=== PATIENT | male | born 1960 | race Two or more races ===

== ENCOUNTER → 2022-08-31 | Outpatient (CLI) | payer MEDICAID | END | disposition home or self-care (01) | LOC: Rad HDHVI 14:04 | PROVIDERS: ATTEND Internal Medicine | DX: R07.89 Other chest pain (principal); R06.02 Shortness of breath | CPT/HCPCS: 93306 ==

== ENCOUNTER 2025-04-11 17:12 | Emergency (ER) | payer OTHER, MEDICAID ==
[~2025-04-11] VITALS: Ht 180.3 cm; Wt 61.4 kg
--- NOTE | 2025-04-11 17:34 | ED.PDOC ---
Eye-HPI HPI Comments This is a 64 year old male presenting to the ED with chief complaint of throat pain and swelling. Patient reports that he has been experiencing gradually worsening throat pain and swelling for the past 5 months. Patient relays that he visited his PCP regarding this issue today and he was advised to come to the ED for further evaluation through CT scan. Patient notes that he is having associated difficulty in swallowing and change in voice quality. Patient denies any N/V, SOB, chest pain, fever, or chills. Chief Complaint: Sore Throat Time Seen by MD: 17:31 Reviewed Notes: Nurses Notes, Medications, Allergies Allergies: Coded Allergies: NO KNOWN ALLERGIES (Unverified , 04/11/25) Information Source: Patient Mode of Arrival: Ambulatory Timing: Months Duration: Since onset Prehospital treatment: None Quality: Pain Oropharynx: Normal Onset: Spontaneous Associated signs and symptoms: Sore Throat Past Medical History PAST MEDICAL HISTORY: Denies Surgical History: Denies all surgeries Family History Family History: Reviewed,noncontributory to illness, No family hx of Cancer, No family hx of DM, No family hx of Heart mariana, No family hx of HTN, No family hx ofKidney mariana, No family hx of Liver mariana, No family hx of Lung mariana, No family hx of Stroke Social History Smoker: Cigarettes, Greater Than 1 Pack/Day Alcohol: Rarely Drugs: Denies Drug Use Lives In: Home Constitutional: denies: chills, diaphoresis, fatigue, fever, malaise, sweats, weakness, others EENTM: reports: throat pain, throat swelling; denies: blurred vision, double vision, ear bleeding, ear discharge, ear drainage, ear pain, ear ringing, eye pain, eye redness, hearing loss, mouth pain, mouth swelling, nasal discharge, nose bleeding, nose congestion, nose pain, photophobia, tearing, voice changes, others Respiratory: denies: cough, hemoptysis, orthopnea, SOB at rest, shortness of breath, SOB with excertion, stridor, wheezing, others Cardiovascular: denies: chest pain, dizzy spells, diaphoresis, Dyspnea on exertion, edema, irregular heart beat, left arm pain, lightheadedness, palpitations, PND, syncope, others Gastrointestinal: denies: abdomen distended, abdominal pain, blood streaked bowels, constipated, diarrhea, dysphagia, difficulty swallowing, hematemesis, melena, nausea, poor appetite, poor fluid intake, rectal bleeding, rectal pain, vomiting, others Genitourinary: denies: burning, dysuria, flank pain, frequency, hematuria, incontinence, penile discharge, penile sore, pain, testicle pain, testicle swelling, urgency, others Neurological: denies: dizziness, fainting, headache, left sided numbness, left sided weakness, numbness, paresthesia, pre-existing deficit, right sided numbness, right sided weakness, seizure, speech problems, tingling, tremors, weakness, others Musculoskeletal: denies: back pain, gout, joint pain, joint swelling, muscle pain, muscle stiffness, neck pain, others Integumetry: denies: bruises, change in color, change in hair/nails, dryness, laceration, lesions, lumps, rash, wounds, others Allergic/Immunocompromised: denies: Difficulty Healing, Frequent Infections, Hives, Itching, others Hematologic/Lymphatic: denies: anemia, blood clots, easy bleeding, easy bruising, swollen glands, others Endocrine: denies: excessive hunger, excessive sweating, excessive thirst, excessive urination, flushing, intolerance to cold, intolerance to heat, unexplained weight gain, unexplained weight loss, others Psychiatric: denies: anxiety, bipolar disorder, depression, hopeless, panic disorder, schizophrenia, sleepless, suicidal, others All Other Systems: Reviewed and Negative Physical Exam General Appearance: No Apparent Distress, Normal HEENT: Other (Relatively unremarkable evaluation of oropharyngeal region. No exudate or tonsillar pillar involvement noted.) Neck: Full Range of Motion, Other (Patient displays some tenderness to palpation throughout the esophagus and thyroid region. No edema noted.) Respiratory: Chest Non-Tender, Lungs Clear, No Accessory Muscle Use, No Resp iratory Distress, Normal Breath Sounds Cardiovascular: No Edema, No JVD, No Murmur, No Gallop, Normal Peripheral Pulses, Regular Rate/Rhythm Breast Exam: Deferred Gastrointestinal: No Organomegaly, Non Tender, No Pulsatile Mass, Normal Bowel Sounds, Soft Genitalia: Deferred Pelvic: Deferred Rectal: Deferred Extremities: No calf tenderness, Normal capillary refill, Normal inspection, Normal range of motion, Non-tender, No pedal edema Neurologic: Alert, No Motor Deficits, Normal Affect, Normal Mood, No Sensory Deficits Cerebellar Function: Normal Reflexes: Normal Skin: Dry, Normal Color, Warm Lymphatic: No Adenopathy Was a procedure done? Was a procedure done?: No EENT DIFF Eye: N/A Sore Throat: Other (Pharyngitis, oropharyngeal mass, laryngitis) X-Ray, Labs, Meds, VS Vital Signs Date Time Temp Pulse Resp B/P (MAP) Pulse Ox O2 Delivery O2 Flow Rate FiO2 04/11/25 19:26 98.2 59 18 100/47 (64) 98 98.2 04/11/25 19:26 59 18 98 Room Air 04/11/25 17:26 99.1 75 16 134/73 (93) 98 99.1 Lab Test 04/11/25 18:05 Range/Units White Blood Count 8.4 4.4-10.8 10^3/uL Red Blood Count 4.70 4.5-5.90 10^6/uL Hemoglobin 12.8 L 13.5-17.5 g/dL Hematocrit 37.9 L 41.0-53.0 % Mean Corpuscular Volume 80.7 80.0-100.0 fL Mean Corpuscular Hemoglobin 27.2 L 28.0-32.0 pg Mean Corpuscular Hemoglobin Concent 33.8 32.0-36.0 g/dL Red Cell Distribution Width 15.9 H 11.8-14.3 % Platelet Count 341 140-450 10^3/uL Mean Platelet Volume 7.4 6.9-10.8 fL Neutrophils (%) (Auto) 53.6 37.0-80.0 % Lymphocytes (%) (Auto) 31.9 10.0-50.0 % Monocytes (%) (Auto) 13.2 H 0.0-12.0 % Eosinophils (%) (Auto) 0.9 0.0-7.0 % Basophils (%) (Auto) 0.4 0.0-2.0 % Neutrophils # (Auto) 4.5 1.6-8.6 10 ^3/uL Lymphocytes # (Auto) 2.7 0.4-5.4 10 ^3/uL Monocytes # (Auto) 1.1 0-1.3 10 ^3/uL Eosinophils # (Auto) 0.1 0-0.8 10 ^3/uL Basophils # (Auto) 0 0-0.2 10 ^3/uL Nucleated Red Blood Cells 0.0 % Sodium Level 140 136-145 mmol/L Potassium Level 3.6 3.5-5.1 mmol/L Chloride Level 104 98-107 mmol/L Carbon Dioxide Level 28 20-31 mmol/L Anion Gap 8 5-15 Blood Urea Nitrogen 12 9-23 mg/dL Creatinine 0.90 0.700-1.30 mg/dL Glomerular Filtration Rate Calc 94 >90 mL/min BUN/Creatinine Ratio 13.3 10.0-20.0 Serum Glucose 87 74-106 mg/dL Calcium Level 11.0 H 8.7-10.4 mg/dL Total Bilirubin 0.4 0.2-1.0 mg/dL Aspartate Amino Transferase (AST) 13 <34 U/L Alanine Aminotransferase (ALT) < 9 7-40 U/L Alkaline Phosphatase 89 46-116 U/L Total Protein 7.8 5.7-8.2 g/dL Albumin 4.5 3.2-4.8 g/dL X-Ray, Labs, Meds, VS Comment All studies performed the ED were evaluated by me personally. Serum laboratories were unremarkable for any systemic process. CT with contrast of the soft tissue of the neck revealed a circumferential esophageal mass extending inferiorly a proximally 4.8 cm from the level of the cricoid cartilage. The mass abuts bilateral deep thyroid lobes, posterior trachea and brachiocephalic artery in the origin of the right vertebral artery. Patient will need to follow up with the primary care provider for ENT referral and evaluation and probable surgical intervention. Time of 1ST Reevaluation: 21:52 Reevaluation 1ST: Unchanged Consultation: PCP, ENT Patient Education/Counseling: Diagnosis, Treatment Family Education/Counseling: Diagnosis, Treatment, No Family Present SEPSIS Sepsis Screen Recent Procedure: No On Antibiotic Therapy: No Respiratory Rate >20: No Heart Rate >90: No Temp<36 C (96.8 F) or >38.3 C: No SBP <90 or MAP <65 mmHG: No New Acute Mental Status Change: No Is the patient on CPAP, BIPAP,: No IV fluid challenge completed?: No Physician Orders Neck With Contrast Soft (04/11/25 17:37) Vital Signs Date Time Temp Pulse Resp B/P (MAP) Pulse Ox O2 Delivery O2 Flow Rate FiO2 04/11/25 19:26 98.2 59 18 100/47 (64) 98 98.2 04/11/25 19:26 59 18 98 Room Air 04/11/25 17:26 99.1 75 16 134/73 (93) 98 99.1 Laboratory Tests Test 04/11/25 18:05 White Blood Count 8.4 10^3/uL (4.4-10.8) Departure 1 Departure Time of Disposition: 21:52 Impression: Primary Impression: Esophageal mass Disposition: HOME / SELF CARE / HOMELESS Condition: Stable Additional Instructions: Patient need to follow up with the primary care provider for continued evaluation and management as well as probable surgical ENT referral and evaluation. Discharged With: Self, Friend Critical Care Note Critical Care Time?: No Stability Stability form required: No Heart Score Heart Score: Heart Score Response (Comments) Value History N/A 0 EKG N/A 0 Age N/A 0 Risk Factors N/A 0 Troponin N/A 0 Total 0 I personally scribed for ISIS DE LA CRUZ PAC ([email or web address]) on 04/11/25 at 17:34. Electronically submitted by Darrin Nunes ([email or web address]). ISIS DE LA CRUZ PAC Apr 11, 2025 17:34
[2025-04-11 18:23] LABS: Basophils # (auto) 0 10 ^3/uL (0-0.2); Basophils % (auto) 0.4 % (0.0-2.0); Eosinophils # (auto) 0.1 10 ^3/uL (0-0.8); Eosinophils % (auto) 0.9 % (0.0-7.0); Hematocrit 37.9 % (41.0-53.0); Hemoglobin 12.8 g/dL (13.5-17.5); Lymphocytes # (auto) 2.7 10 ^3/uL (0.4-5.4); Lymphocytes % (auto) 31.9 % (10.0-50.0); Mean Corpuscular Hemoglobin 27.2 pg (28.0-32.0); Mean Corpuscular Hgb Conc. 33.8 g/dL (32.0-36.0); Mean Corpuscular Volume 80.7 fL (80.0-100.0); Monocytes # (auto) 1.1 10 ^3/uL (0-1.3); Monocytes % (auto) 13.2 % (0.0-12.0); Neutrophils # (auto) 4.5 10 ^3/uL (1.6-8.6); Neutrophils % (auto) 53.6 % (37.0-80.0); Platelet Count (auto) 341 10^3/uL (140-450); Red Cell Distribution Width 15.9 % (11.8-14.3); White Blood Cell 8.4 10^3/uL (4.4-10.8)
[2025-04-11 18:39] LABS: Albumin 4.5 g/dL (3.2-4.8); Alkaline Phosphatase 89 U/L (46-116); Anion Gap 8 (5-15); Aspartate Aminotransferase 13 U/L (<34); BUN/Creatinine Ratio 13.3 (10.0-20.0); Bilirubin, Total 0.4 mg/dL (0.2-1.0); Blood Urea Nitrogen 12 mg/dL (9-23); Carbon Dioxide 28 mmol/L (20-31); Chloride 104 mmol/L (98-107); Glucose 87 mg/dL (74-106); Potassium 3.6 mmol/L (3.5-5.1); Sodium 140 mmol/L (136-145); Total Protein 7.8 g/dL (5.7-8.2)
[2025-04-11 18:40] LABS: Alanine Aminotransferase < 9 U/L (7-40)
[2025-04-11] MEDS: IOHEXOL 300 MG/ML 100ML BOTTLE IJ ONE (21:13)
--- NOTE | 2025-04-11 21:43 | DVH ---
COMPUTERIZED TOMOGRAPHY OF THE NECK WITH INTRAVENOUS CONTRAST CLINICAL HISTORY: Possible neoplasm COMPARISON: None TECHNIQUE: The exam was performed on a multidetector scanner. Thin section spiral scans were acqui red from the external auditory canals to the thoracic inlet during the bolus intravenous administrati on of contrast material. 2-D coronal and sagittal reformatted images were provided. Automated expos ure control was used. CONTRAST ADMINISTERED: 100 mL omnipaque 300, intravenously. RADIATION DOSE: CTDI: 13 mGy DLP: 374 mGy-cm FINDINGS: The airway is symmetric and patent. No dominant masses or pathologically enlarged cerv ical lymph nodes are identified. There is a 1.0 cm area at the posterior superior aspect of the left parotid gland which appears to enhance more than the remainder of the gland and may suggest an underl pradeep mass. The salivary glands are otherwise within normal limits and symmetric. The thyroid gland is unremarkable. There is a 3.0 x 3.2 x 4.8 cm circumferential upper esophageal mass extending inferior ly from approximately the level of the cricoid cartilage. The margins of the mass are lobulated and abuts the posterior aspect of the trachea and may abut the deep portion of bilateral lobes of the thy roid, the brachiocephalic artery, and the origin of the right vertebral artery. The mass also approac hes but appears to respect a fat plane adjacent to the left common carotid artery. Bilateral vertebra l arteries, common carotid arteries, and internal carotid arteries are widely patent. There is mild c alcified plaque at bilateral carotid bulbs without significant narrowing. Bilateral jugular veins are widely patent. The visualized lung apices demonstrate mild paraseptal emphysema. There are degenerat mao changes in the spine. No focal osseous abnormality is identified. IMPRESSION: Circumferential esophageal mass extending inferiorly approximately 4.8 cm from the level of the crico id cartilage. The mass abuts bilateral deep thyroid lobes, posterior trachea, the brachiocephalic art ihsan in the origin of the right vertebral artery. No lymphadenopathy is identified. Hyperenhancing area at the superior posterior aspect of the left parotid gland that could represent a n underlying mass. Further evaluation with MRI is recommended.
[2025-04-11 22:38] VITALS: BP 151/57; TEMP 98.3
[2025-04-11 22:39] VITALS: PULSE 67; RESP 18; O2SAT 98
== END 2025-04-11 22:38 | disposition home or self-care (01) ==
LOC: ER 17:20
DX: K22.9 Disease of esophagus, unspecified (principal); M47.812 Spondylosis without myelopathy or radiculopathy, cervical region; F17.210 Nicotine dependence, cigarettes, uncomplicated; F10.90 Alcohol use, unspecified, uncomplicated; Y90.9 Presence of alcohol in blood, level not specified
CPT/HCPCS: 36415; 70491; 80053; 85025; 99285; Q9967